=== PATIENT | female | born 1955 | race Asian ===

== ENCOUNTER → 2024-01-14 12:50 | Outpatient (REF) | payer MEDICARE, OTHER, SELFPAY | LOC: HWRAD 12:50 | PROVIDERS: ATTENDING PHYSICIAN Emergency Medicine | DX: N18.9 Chronic kidney disease, unspecified (principal) | CPT/HCPCS: 76775 ==

== ENCOUNTER → 2024-04-29 06:39 | Day surgery (SDC) | payer OTHER, SELFPAY ==
[2024-04-29 12:06] LABS: Glucose - Point of Care 103 mg/dl (70-99)
== END ==
LOC: GI 06:39
PROVIDERS: ATTENDING PHYSICIAN Internal Medicine Gastroenterology
DX: Z12.11 Encounter for screening for malignant neoplasm of colon (principal); Z86.010 Personal history of colon polyps
CPT/HCPCS: G0105; 82962

== ENCOUNTER → 2024-08-28 09:28 | Outpatient (REF) | payer OTHER, SELFPAY | LOC: HWRAD 09:28 | PROVIDERS: ATTENDING PHYSICIAN Nurse Practitioner Obstetrics & Gynecology; FAMILY PHYSICIAN Family Medicine | DX: R14.0 Abdominal distension (gaseous) (principal) | CPT/HCPCS: 76830; 76856 ==

== ENCOUNTER → 2024-09-15 11:49 | Outpatient (REF) | payer OTHER, SELFPAY | LOC: HWRAD 11:49 | PROVIDERS: ATTENDING PHYSICIAN Nurse Practitioner Adult Health | DX: R19.7 Diarrhea, unspecified (principal) | CPT/HCPCS: 74018 ==

== ENCOUNTER → 2024-10-16 17:03 | Outpatient (REF) | payer OTHER, SELFPAY | LOC: RAD 17:03 | PROVIDERS: ATTENDING PHYSICIAN Internal Medicine Gastroenterology; FAMILY PHYSICIAN Family Medicine | DX: K52.9 Noninfective gastroenteritis and colitis, unspecified (principal); R19.4 Change in bowel habit; R14.0 Abdominal distension (gaseous) | CPT/HCPCS: 74177; Q9967 ==

== ENCOUNTER 2024-11-25 06:25 | Day surgery (SDC) | payer OTHER, SELFPAY ==
[2024-11-25 14:10] LABS: Glucose - Point of Care 77 mg/dl (70-99)
== END 2024-11-25 15:39 | disposition home or self-care (01) ==
LOC: GI 06:25
PROVIDERS: ATTENDING PHYSICIAN Internal Medicine Gastroenterology
DX: R63.4 Abnormal weight loss (principal); K52.9 Noninfective gastroenteritis and colitis, unspecified; R19.4 Change in bowel habit; R76.8 Other specified abnormal immunological findings in serum; K21.00 Gastro-esophageal reflux disease with esophagitis, without bleeding; K31.89 Other diseases of stomach and duodenum; R14.0 Abdominal distension (gaseous); K62.1 Rectal polyp
CPT/HCPCS: 45385; 45380; 43239; 88305; 82962

== ENCOUNTER → 2025-05-28 09:48 | Outpatient (REF) | payer OTHER, SELFPAY | LOC: RAD 09:48 | PROVIDERS: ATTENDING PHYSICIAN Internal Medicine Gastroenterology; FAMILY PHYSICIAN Family Medicine | DX: K52.9 Noninfective gastroenteritis and colitis, unspecified (principal); R63.4 Abnormal weight loss | CPT/HCPCS: 74177; Q9967 ==